=== PATIENT | male | born 2000 | race Caucasian/White ===

== ENCOUNTER → 2018-02-08 | Outpatient (REF) | payer MEDICARE ==
[2018-02-08 14:34] LABS: BASO # 0.1 10^3/uL (0.0-0.2); BASO % 0.6 % (0.0-1.0); EOS # 1.3 10^3/uL (0.0-0.50); EOS % 14.8 % (0.0-3.0); IMMATURE GRANULOCYTE % 0.3 % (0-3.0); LYMPH # 2.4 10^3/uL (1.5-6.5); LYMPH % 27.6 % (24.0-44.0); MEAN CORPUSCULAR HEMOGLOBIN 29.7 pg (27.0-33.0); MEAN CORPUSCULAR HGB CONC 33.3 g/dl (32.0-36.5); MEAN CORPUSCULAR VOLUME 89.1 fl (80.0-96.0); MONO # 0.8 10^3/uL (0.0-0.8); MONO % 9.2 % (0.0-5.0); NEUTROPHILS # 4.1 10^3/uL (1.8-7.7); NEUTROPHILS % 47.5 % (36.0-66.0); PLATELET COUNT, AUTOMATED 257 10^3/uL (150-450); RED BLOOD COUNT 5.39 10^6/uL (4.30-6.10); RED CELL DISTRIBUTION WIDTH 12.5 % (11.5-14.5); WHITE BLOOD COUNT 8.6 10^3/uL (4.0-10.0)
[2018-02-08 15:04] LABS: ERYTHROCYTE SEDIMENTATION RATE 1 mm/hr (0-15)
[2018-02-08 15:32] LABS: ALBUMIN 3.5 GM/DL (3.2-5.2); ALBUMIN/GLOBULIN RATIO 0.97 (1.00-1.93); ALKALINE PHOSPHATASE 77 U/L (45-117); ALT/SGPT 27 U/L (12-78); ANION GAP 8 MEQ/L (8-16); AST/SGOT 25 U/L (7-37); BILIRUBIN,TOTAL 0.2 MG/DL (0.2-1.0); BLOOD UREA NITROGEN 11 MG/DL (7-18); CALCIUM LEVEL 8.9 MG/DL (8.5-10.1); CARBON DIOXIDE LEVEL 26 MEQ/L (21-32); CHLORIDE LEVEL 106 MEQ/L (98-107); CREATININE FOR GFR 0.86 MG/DL (0.70-1.30); GLUCOSE, FASTING 84 MG/DL (70-100); POTASSIUM SERUM 4.4 MEQ/L (3.5-5.1); RHEUMATOID FACTOR QUANT < 10.0 IU/ML (<15.0); SODIUM LEVEL 140 MEQ/L (136-145); TOTAL 25(OH) VITAMIN D 19.4 NG/ML (30.0-100.0); TOTAL PROTEIN 7.1 GM/DL (6.4-8.2)
[2018-02-11 17:40] LABS: LEVETIRACETAM (KEPPRA) 13.7 ug/mL (10.0-40.0)
[2018-02-11 17:40] LABS: ANTINUCLEAR ANTIBODIES DIRECT Negative (Negative)
== END ==
LOC: M LABNEURO 09:08
DX: R56.9 Unspecified convulsions (principal)
CPT/HCPCS: 84443

== ENCOUNTER → 2019-11-30 | Emergency (ER) | payer OTHER ==
[~2019-11-30] MED LIST: methylPREDNISolone 125MG 2ML VIAL As Ordered ONE; methylPREDNISolone 125MG 2ML VIAL ONE
[2020-01-17 09:15] LABS: AMORPHOUS SEDIMENT LARGE (NEGATIVE); APPEARANCE, URINE TURBID (CLEAR); BACTERIA, URINE AUTO NEGATIVE (NEGATIVE); BILIRUBIN, URINE AUTO NEGATIVE (NEGATIVE); BLOOD, URINE BLOOD NEGATIVE (NEGATIVE); COLOR, URINE YELLOW (YELLOW); GLUCOSE, URINE (UA) AUTO NEGATIVE (NEGATIVE); KETONE, URINE AUTO TRACE mg/dL (NEGATIVE); LEUKOCYTE ESTERASE, URINE AUTO NEGATIVE (NEGATIVE); MUCUS, URINE SMALL (NEGATIVE); NITRITE, URINE AUTO NEGATIVE (NEGATIVE); PROTEIN, URINE AUTO 1+ mg/dL (NEGATIVE); RBC, URINE AUTO 0 /HPF (0-3); SPECIFIC GRAVITY URINE AUTO 1.039 (1.002-1.035); SQUAMOUS EPITHELIAL CELL UR AU 0 /HPF (0-6); UROBILINOGEN, URINE AUTO 0.2 mg/dL (0.0-2.0); WBC, URINE AUTO 0 /HPF (0-3)
[2020-01-18 20:15] LABS: BASO # 0.1 10^3/uL (0.0-0.2); BASO % 0.4 % (0.0-1.0); EOS # 1.5 10^3/uL (0.0-0.5); EOS % 10.4 % (0.0-3.0); HEMATOCRIT 50.9 % (42.0-52.0); HEMOGLOBIN 17.6 g/dl (13.5-17.5); LYMPH # 1.7 10^3/uL (1.5-5.0); LYMPH % 12.2 % (24.0-44.0); MEAN CORPUSCULAR HEMOGLOBIN 30.3 pg (27.0-33.0); MEAN CORPUSCULAR HGB CONC 34.6 g/dl (32.0-36.5); MEAN CORPUSCULAR VOLUME 87.6 fl (80.0-96.0); MONO # 1.2 10^3/uL (0.0-0.8); MONO % 8.1 % (0.0-5.0); NEUTROPHILS # 9.7 10^3/uL (1.5-8.5); NEUTROPHILS % 68.5 % (36.0-66.0); PLATELET COUNT, AUTOMATED 279 10^3/uL (150-450); RED BLOOD COUNT 5.81 10^6/uL (4.30-6.10); WHITE BLOOD COUNT 14.2 10^3/uL (4.0-10.0)
[2020-02-22 04:45] LABS: BLOOD UREA NITROGEN 11 MG/DL (7-18); CALCIUM LEVEL 9.9 MG/DL (8.5-10.1); CARBON DIOXIDE LEVEL 26 MEQ/L (21-32); CHLORIDE LEVEL 109 MEQ/L (98-107); CREATININE FOR GFR 1.09 MG/DL (0.70-1.30); GLOMERULAR FILTRATION RATE > 60.0 (>60); GLUCOSE, FASTING 83 MG/DL (70-100); POTASSIUM SERUM 4.1 MEQ/L (3.5-5.1); SODIUM LEVEL 142 MEQ/L (136-145)
[2020-02-22 04:46] LABS: ALBUMIN 4.3 GM/DL (3.2-5.2); ALT/SGPT 24 U/L (12-78); BILIRUBIN,TOTAL 0.5 MG/DL (0.2-1.0); LIPASE 57 U/L (73-393); TOTAL PROTEIN 8.3 GM/DL (6.4-8.2)
== END | disposition home or self-care (01) ==
LOC: M ED 17:50
DX: J20.8 Acute bronchitis due to other specified organisms (principal); J45.909 Unspecified asthma, uncomplicated; R56.9 Unspecified convulsions; F17.200 Nicotine dependence, unspecified, uncomplicated; Z79.899 Other long term (current) drug therapy
CPT/HCPCS: 71046; 80053; 81001; 83690; 85025; 87086; 87486; 87581; 87633; 87798; 96374; 99284; J2930

== ENCOUNTER 2020-06-01 08:59 | Emergency (ER) | payer OTHER ==
[~2020-06-01] VITALS: Ht 188 cm; Wt 105.4 kg
--- OUTSIDE RECORDS SUMMARY | 2020-06-01 09:10 | CCD ---
Author Author [facility] Organization [facility] Address Unknown Phone Unavailable Care Team Providers Care Ad Copy Writer Name Role Phone Shaka, L Saundra PA Unavailable Unavailable Shaka, L Saundra PA Unavailable Unavailable Shaka, L Saundra PA Unavailable Unavailable Shaka, L Saundra PA Unavailable Unavailable Shaka, L Saundra PA Unavailable Unavailable Shaka, L Saundra PA Unavailable Unavailable Shaka, L Saundra PA Unavailable Unavailable Shaka, L Saundra PA Unavailable Unavailable Shaka, L Saundra PA Unavailable Unavailable Shaka, L Saundra PA Unavailable Unavailable Shaka, L Saundra PA Unavailable Unavailable Shaka, L Saundra PA Unavailable Unavailable Shaka, L Saundra PA Unavailable Unavailable Shaka, L Saundra PA Unavailable Unavailable Shaka, L Saundra PA Unavailable Unavailable Shaka, L Saundra PA Unavailable Unavailable Shaka, L Saundra PA Unavailable Unavailable Shaka, L Saundra PA Unavailable Unavailable Shaka, L Saundra PA Unavailable Unavailable Shaka, L Saundra PA Unavailable Unavailable Shaka, L Saundra PA Unavailable Unavailable Shaka, L Saundra PA Unavailable Unavailable Shaka, L Saundra PA Unavailable Unavailable Shaka, L Saundra PA Unavailable Unavailable Shaka, L Saundra PA Unavailable Unavailable Shaka, L Saundra PA Unavailable Unavailable Shaka, L Saundra PA Unavailable Unavailable Shaka, L Saundra PA Unavailable Unavailable Shaka, L Saundra PA Unavailable Unavailable Shaka, L Saundra PA Unavailable Unavailable Shaka, L Saundra PA Unavailable Unavailable Shaka, L Saundra PA Unavailable Unavailable Shaka, L Saundra PA Unavailable Unavailable Shaka, L Saundra PA Unavailable Unavailable Re-disclosure Warning The records that you are about to access may contain information from federally-assisted alcohol or drug abuse programs. If such information is present, then the following federally mandated warning applies: This information has been disclosed to you from records protected by federal confidentiality rules (42 CFR part 2). The federal rules prohibit you from making any further disclosure of this information unless further disclosure is expressly permitted by the written consent of the person to whom it pertains or as otherwise permitted by 42 CFR part 2. A general authorization for the release of medical or other information is NOT sufficient for this purpose. The Federal rules restrict any use of the information to criminally investigate or prosecute any alcohol or drug abuse patient.The records that you are about to access may contain highly sensitive health information, the redisclosure of which is protected by Article 27-F of the [facility] Public Health law. If you continue you may have access to information: Regarding HIV / AIDS; Provided by facilities licensed or operated by the [facility] Office of Mental Health; or Provided by the [facility] Office for People With Developmental Disabilities. If such information is present, then the following [facility] mandated warning applies: This information has been disclosed to you from confidential records which are protected by state law. State law prohibits you from making any further disclosure of this information without the specific written consent of the person to whom it pertains, or as otherwise permitted by law. Any unauthorized further disclosure in violation of state law may result in a fine or fci sentence or both. A general authorization for the release of medical or other information is NOT sufficient authorization for further disc losure. Encounters Encounter Providers Location Date Indications Data Source(s ) Outpatient Attender: Saundra BRINK ED-LAB 02/14/2020 08:30 :00 AM EDT [facility] Outpatient [address] [facility] [address] 10/09/2019 12:00:00 AM EDT eCW1 ([facility]) Medications Medication Brand Name Start Date Product Form Dose Route Admi nistrative Instructions Pharmacy Instructions Status Indications Reaction Description Data Source(s) 500 mg 05/21/2020 12:00:00 AM EST tablet 90 TAKE THREE TABLETS BY MOUTH EVERY EVENING TAKE THREE TABLETS BY MOUTH EVERY EVENING SOLD: 05/21/2020 [facility] 100-50 mcg/dose 04/25/2020 12:00:00 AM EST blister with renetta ce 60 INHALE ONE PUFF BY MOUTH EVERY DAY INHALE ONE PUFF BY MOUTH EVERY DAY SOLD: 04/25/2020 [facility] Cortisporin 3.5-03885-0 UNK 10/09/2019 12:00:00 AM EDT active Cortisporin 3.5-42260-4 eCW1 ([facility]) Insurance Providers Payer name Policy type / Coverage type Policy ID Covered libertarian ID Covered libertarian's relationship to sexton Policy Sexton Plan Information TYESHA [id number] SP [id number] [place] O [id number] S [id number] MEDICAID -O/P EMERGENCY ROOM [id number] [place] -[place] [id number] 18 [id number] [place] X[place] -PHYSICIAN [id number] 18 [id number] MEDICAID-O/P [id number] W TYESHA MEDICARE [id number] SP [id number] TYESHA [id number] [facility] PLUS -O/P [id number] Results ID Date Data Source [id number] 03/06/2020 03:20:00 PM EST Rlmicheleestephania Delacruz magalyspriscilla See scanned report Name Value Range Interpretation Code Description Data Agnes rce(s) Supporting Document(s) Procedure Social History Code Duration Value Status Description Data Source(s ) Smoking 10/09/2019 12:00:00 AM EDT UNK completed eCW1 ([facility]) Vital Signs ID Date Data Source UNK Name Value Range Interpretation Code Description Data Source(s) Diastolic blood pressure 88 mm[Hg] 88 mm[Hg] eCW1 ([facility]) Systolic blood pressure 135 mm[Hg] 135 mm[Hg] e CW1 ([facility]) Body temperature 97.7 [degF] 97.7 [degF] eCW1 ( [facility]) Respiratory rate 16 /min 16 /min eCW1 ([facility]) Heart rate 88 /min 88 /min eCW1 ([facility]) Body mass index (BMI) [Ratio] 33.51 kg/m2 33.51 kg/m2 eCW1 ([facility]) Body height 73 [in_i] 73 [in_i] eCW1 ([facility]) Body weight 254 [lb_av] 254 [lb_av] eCW1 ([facility]) Patient Treatment Plan of Care Planned Activity Planned Date Details Description Data Source (s) Gurpreet [id number] 10/09/2019 12:00:00 AM EDT eC1 ([facility])
[2020-06-01] MEDS ORDERED: LEVE500T5 PO (09:12)
--- OUTSIDE RECORDS SUMMARY | 2020-06-01 09:30 | CCD ---
Author Author [facility] Organization [facility] Address Unknown Phone Unavailable Care Team Providers Care Flaking Roll Operator Name Role Phone Shaka, L Saundra PA [...] is protected by Article 27-F of the [facility] Public Health law. If you continue you may have access to information: Regarding HIV / AIDS; Provided by facilities licensed or operated by the [facility] Office of Mental Health; or Provided by the [facility] Office for People With Developmental Disabilities. If such information is present, then the following [facility] mandated warning applies: This information [...] law may result in a fine or senior living sentence or both. A general authorization for the release of medical or other information is NOT sufficient authorization for further disc losure. Encounters Encounter Providers Location Date Indications Data Source(s ) Outpatient Attender: Saundra BRINK ED-LAB 02/14/2020 08:30 :00 AM EDT [facility] [place]patient [address] [address] 10/09/2019 12:00:00 AM EDT eCW1 ([facility]) Medications Medication Brand Name Start Date Product Form Dose Route Admi nistrative Instructions Pharmacy Instructions Status Indications Reaction Description Data Source(s) 500 mg 05/21/2020 12:00:00 AM EST tablet 90 TAKE THREE TABLETS BY MOUTH EVERY EVENING TAKE THREE TABLETS BY MOUTH EVERY EVENING SOLD: 05/21/2020 [facility] 100-50 mcg/dose 04/25/2020 12:00:00 AM EST blister with renetta ce 60 INHALE ONE PUFF BY MOUTH EVERY DAY INHALE ONE PUFF BY MOUTH EVERY DAY SOLD: 04/25/2020 [facility] Cortisporin [id number] UNK 10/09/2019 12:00:00 AM EDT active Cortisporin 3.5-47782-6 eCW1 ([facility]) Insurance Providers Payer name Policy type / Coverage type Policy ID Covered republican ID Covered republican's relationship to sexton Policy Sexton Plan Information TYESHA [id number] SP [id number] [place] [place] O [id number] S [id number] MEDICAID -O/P EMERGENCY ROOM [id number] [place] [id number] 18 [id number] [place] -PHYSICIAN [id number] 18 [id number] MEDICAID-O/P [id number] W TYESHA MEDICARE [id number] SP [id number] TYESHA [id number] 00 [id number] [facility] PLUS -O/P [id number] Results ID Date Data Source [id number] 03/06/2020 03:20:00 PM EST Nolan moyer See scanned report Name Value Range Interpretation Code Description Data Agnes rce(s) Supporting Document(s) Procedure Social History Code Duration Value Status Description Data Source(s ) Smoking 10/09/2019 12:00:00 AM EDT UNK completed eCW1 ([facility]) Vital Signs ID Date Data Source UNK Name Value Range Interpretation Code Description Data Source(s) Diastolic blood pressure 88 mm[Hg] 88 mm[Hg] eCW1 ([facility]) Systolic blood pressure 135 mm[Hg] 135 mm[Hg] e CW1 ([facility]) Body temperature 97.7 [degF] 97.7 [degF] eCW1 ( [facility]) Respiratory rate 16 /min 16 /min eCW1 ([facility]) Heart rate 88 /min 88 /min eCW1 ([facility]) Body mass index (BMI) [Ratio] 33.51 kg/m2 33.51 kg/m2 eCW1 ([facility]) Body height 73 [in_i] 73 [in_i] eCW1 ([facility]) Body weight 254 [lb_av] 254 [lb_av] eCW1 ([facility]) Patient Treatment Plan of Care Planned Activity Planned Date Details Description Data Source (s) Gurpreet 3.5-73735-4 10/09/2019 12:00:00 AM EDT eCW1 ([facility])
[2020-06-01] MEDS ORDERED: ALBUTEROL 90 MCG/ACT 8GM HFA INHALER INH ONE (09:45)
[2020-06-01] MEDS ORDERED: VENTAER INH (09:56)
[2020-06-01 10:03] VITALS: BP 145/81
== END 2020-06-01 10:05 | disposition home or self-care (01) ==
LOC: M ED 08:59
DX: J45.909 Unspecified asthma, uncomplicated (principal)
CPT/HCPCS: 94640; 99283; U0003

== ENCOUNTER 2020-10-09 23:01 | Emergency (ER) | payer OTHER ==
[~2020-10-09] VITALS: Ht 185.4 cm; Wt 102.5 kg
[~2020-10-09 23:01] MED LIST changes: +LEVE500T5 PO; +VENTAER INH; -methylPREDNISolone 125MG 2ML VIAL As Ordered ONE; -methylPREDNISolone 125MG 2ML VIAL ONE
[2020-10-09 23:02] VITALS: BP 113/60
[2020-10-09] MEDS ORDERED: SING10TA32 PO (23:15)
== END 2020-10-10 02:16 | disposition left against medical advice (07) ==
LOC: M ED 23:01
DX: Z53.21 Procedure and treatment not carried out due to patient leaving prior to being seen by health care provider (principal)

== ENCOUNTER 2020-11-07 04:37 | Emergency (ER) | payer OTHER ==
[~2020-11-07] VITALS: Ht 185.4 cm; Wt 99.6 kg
[~2020-11-07 04:37] MED LIST changes: +SING10TA32 PO
[2020-11-07 04:38] VITALS: BP 141/88
[2020-11-07] MEDS ORDERED: IPRATROPIUM 0.5MG/ALBUTEROL 2.5MG INH SOL UD 3ML (DUONEB) NEB ONE (04:45)
== END 2020-11-07 06:32 | disposition left against medical advice (07) ==
LOC: M ED 04:37
DX: Z53.21 Procedure and treatment not carried out due to patient leaving prior to being seen by health care provider (principal)

== ENCOUNTER 2020-12-02 03:36 | Emergency (ER) | payer OTHER ==
[~2020-12-02] VITALS: Ht 185.4 cm; Wt 99.7 kg
[2020-12-02 03:37] VITALS: BP 125/82
[2020-12-02] MEDS ORDERED: IPRATROPIUM 0.5MG/ALBUTEROL 2.5MG INH SOL UD 3ML (DUONEB) NEB ONE (05:10)
== END 2020-12-02 06:37 | disposition left against medical advice (07) ==
LOC: M ED 03:36
DX: Z53.21 Procedure and treatment not carried out due to patient leaving prior to being seen by health care provider (principal)

== ENCOUNTER 2023-06-03 12:16 | Emergency (ER) | payer OTHER, SELFPAY ==
[~2023-06-03] VITALS: Ht 185.4 cm; Wt 83.5 kg
[~2023-06-03 12:16] MED LIST changes: +MONT-5 PO; -SING10TA32 PO
[2023-06-03 13:55] LABS: RSV AMPLIFICATION NEGATIVE (NEGATIVE)
[2023-06-03] MEDS ORDERED: ALBU6.7H6 INH (14:28)
[2023-06-03] MEDS ORDERED: AMOX500T PO (14:28)
[2023-06-03 15:09] VITALS: BP 129/72; TEMP 98.9; O2SAT 99
== END 2023-06-03 15:11 | disposition home or self-care (01) ==
LOC: M ED 12:16
DX: J02.0 Streptococcal pharyngitis (principal); J45.909 Unspecified asthma, uncomplicated; Z79.52 Long term (current) use of systemic steroids; Z79.2 Long term (current) use of antibiotics; Z79.899 Other long term (current) drug therapy

== ENCOUNTER 2023-08-06 23:25 | Emergency (ER) | payer BC, SELFPAY ==
[~2023-08-06] VITALS: Ht 185.4 cm; Wt 81.0 kg
[~2023-08-06 23:25] MED LIST changes: +ALBU6.7H6 INH; +AMOX500T PO
[2023-08-06 23:32] VITALS: BP_DIAS 75
[2023-08-07 01:29] VITALS: BP_SYST 124; TEMP 97.7; O2SAT 99
[2023-08-07 02:45] LABS: BASO # 0.1 10^3/uL (0.0-0.2); BASO % 0.4 % (0.0-1.0); EOS # 0.2 10^3/uL (0.0-0.5); EOS % 1.9 % (0.0-3.0); HEMATOCRIT 41.4 % (42.0-52.0); HEMOGLOBIN 14.2 g/dl (13.5-17.5); LYMPH # 2.3 10^3/uL (1.5-5.0); LYMPH % 19.3 % (24.0-44.0); MEAN CORPUSCULAR HEMOGLOBIN 30.6 pg (27.0-33.0); MEAN CORPUSCULAR HGB CONC 34.3 g/dl (32.0-36.5); MEAN CORPUSCULAR VOLUME 89.2 fl (80.0-96.0); MONO # 0.9 10^3/uL (0.0-0.8); MONO % 7.6 % (2.0-8.0); NEUTROPHILS # 8.5 10^3/uL (1.5-8.5); NEUTROPHILS % 70.6 % (36.0-66.0); PLATELET COUNT, AUTOMATED 253 10^3/uL (150-450); RED BLOOD COUNT 4.64 10^6/uL (4.30-6.10); WHITE BLOOD COUNT 12.1 10^3/uL (4.0-10.0)
[2023-08-07 02:58] LABS: INR 1.04; PARTIAL THROMBOPLASTIN TIME 27.6 SECONDS (24.8-34.2); PROTHROMBIN TIME 13.3 SECONDS (12.5-14.5)
[2023-08-07 03:52] LABS: BLOOD UREA NITROGEN 12 MG/DL (9-23); CALCIUM LEVEL 9.1 MG/DL (8.5-10.1); CARBON DIOXIDE LEVEL 26 MMOL/L (20-31); CHLORIDE LEVEL 105 MMOL/L (98-107); CK-MB VALUE MASS 3.9 NG/ML (<3.6); CREATININE FOR GFR 0.81 MG/DL (0.70-1.30); GLOMERULAR FILTRATION RATE > 60.0 (>60); GLUCOSE, FASTING 113 MG/DL (60-100); POTASSIUM SERUM 3.5 MMOL/L (3.5-5.1); SODIUM LEVEL 137 MMOL/L (136-145)
[2023-08-07 03:54] LABS: FREE T4 1.27 NG/DL (0.89-1.76)
[2023-08-07 03:55] LABS: THYROID STIMULATING HORMONE 0.962 uIU/ML (0.55-4.78)
[2023-08-07 03:58] LABS: CPK CREATINE PHOSPHOKINASE 261 U/L (46-171); MB/CK RELATIVE INDEX 1.49 (< OR =4)
[2023-08-07 04:15] LABS: CK-MB VALUE MASS 4.2 NG/ML (<3.6)
[2023-08-07 04:28] LABS: MB/CK RELATIVE INDEX 1.68 (< OR =4)
== END 2023-08-07 05:33 | disposition home or self-care (01) ==
LOC: M ED 23:25
DX: R07.9 Chest pain, unspecified (principal); Z79.899 Other long term (current) drug therapy

== ENCOUNTER 2024-01-27 11:53 | Emergency (ER) | payer BC ==
[~2024-01-27] VITALS: Ht 185.4 cm; Wt 81.4 kg
[2024-01-27] MEDS ORDERED: BREAMIS10 MC (14:29)
[2024-01-27] MEDS ORDERED: ALBU8.5H INH (14:29)
[2024-01-27] MEDS: IPRATROPIUM 0.5MG/ALBUTEROL 2.5MG INH SOL UD 3ML (DUONEB) NEB ONE (15:15)
[2024-01-27 15:23] VITALS: BP 128/80; TEMP 99; O2SAT 97
== END 2024-01-27 15:26 | disposition home or self-care (01) ==
LOC: M ED 11:53
DX: J06.9 Acute upper respiratory infection, unspecified (principal); J45.909 Unspecified asthma, uncomplicated; G40.909 Epilepsy, unspecified, not intractable, without status epilepticus; Z79.52 Long term (current) use of systemic steroids

== ENCOUNTER 2024-04-10 00:50 | Emergency (ER) | payer BC, MEDICAID, OTHER, SELFPAY ==
[~2024-04-10] VITALS: Ht 185.4 cm; Wt 85.5 kg
[~2024-04-10 00:50] MED LIST changes: +ALBU8.5H INH; +BREAMIS10 MC
[2024-04-10 01:42] LABS: HEMOGLOBIN 14.5 g/dl (13.5-17.5); MEAN CORPUSCULAR HEMOGLOBIN 30.8 pg (27.0-33.0); MEAN CORPUSCULAR HGB CONC 34.5 g/dl (32.0-36.5); MEAN CORPUSCULAR VOLUME 89.2 fl (80.0-96.0); PLATELET COUNT, AUTOMATED 254 10^3/uL (150-450); RED BLOOD COUNT 4.71 10^6/uL (4.30-6.10); WHITE BLOOD COUNT 10.5 10^3/uL (4.0-10.0)
[2024-04-10 02:03] LABS: AMPHETAMINES LEVEL URINE NEGATIVE (NEGATIVE); BARBITURATES URINE NEGATIVE (NEGATIVE); BENZODIAZEPINES URINE NEGATIVE (NEGATIVE); COCAINE METABOLITE URINE NEGATIVE (NEGATIVE); METHADONE URINE NEGATIVE (NEGATIVE); OPIATES URINE NEGATIVE (NEGATIVE); PHENCYCLIDINE URINE NEGATIVE (NEGATIVE)
[2024-04-10 02:06] LABS: ETHYL ALCOHOL (ETHANOL) < 0.003 % (0.000-0.010)
[2024-04-10 02:08] LABS: ALBUMIN 4.1 G/DL (3.2-5.2); ALKALINE PHOSPHATASE 54 U/L (40-129); ALT/SGPT 14 U/L (7.0-40); AST/SGOT 21 U/L (<34); BILIRUBIN,DIRECT 0.3 MG/DL (<0.4); BILIRUBIN,TOTAL 0.9 MG/DL (0.3-1.2); BLOOD UREA NITROGEN 16 MG/DL (9-23); CALCIUM LEVEL 9.6 MG/DL (8.5-10.1); CARBON DIOXIDE LEVEL 22 MMOL/L (20-31); CHLORIDE LEVEL 106 MMOL/L (98-107); CREATININE FOR GFR 0.94 MG/DL (0.70-1.30); GLOMERULAR FILTRATION RATE > 60.0 (>60); GLUCOSE, FASTING 99 MG/DL (60-100); POTASSIUM SERUM 3.6 MMOL/L (3.5-5.1); SALICYLATE LEVEL < 3.0 MG/DL (<30); SODIUM LEVEL 141 MMOL/L (136-145); TOTAL PROTEIN 7.5 G/DL (5.7-8.2)
[2024-04-10 02:09] LABS: CANNABINOIDS URINE POSITIVE (NEGATIVE)
[2024-04-10] MEDS: BACITRACIN OINTMENT 30GM TUBE TOP ONE (02:30)
[2024-04-10 05:55] VITALS: BP 118/70; TEMP 97.3; O2SAT 99
== END 2024-04-10 06:33 | disposition home or self-care (01) ==
LOC: M ED 00:50
DX: F43.21 Adjustment disorder with depressed mood (principal); X78.9XXA Intentional self-harm by unspecified sharp object, initial encounter